=== PATIENT | female | born 1950 | race Caucasian/White ===

== ENCOUNTER 2017-11-04 22:52 | Emergency (ER) | payer MEDICARE, OTHER ==
[~2017-11-04] VITALS: Ht 162.6 cm; Wt 100.7 kg
[~2017-11-04 22:52] MED LIST: GLUCTAB PO; IBUP600T26 PO; ORPH100T PO; POLY10O LEFT EYE
[2017-11-04 23:09] VITALS: BP 113/63; PULSE 94; RESP 20; TEMP 98; O2SAT 96
[2017-11-04 23:50] VITALS: BP 113/63; PULSE 94; RESP 20; TEMP 98; O2SAT 96
[2017-11-04] MEDS ORDERED: SODIUM CHLOR 0.9% 1000 ML INJ 1,000 ML IV ONE (23:57)
--- NOTE | 2017-11-04 23:58 | PD ---
HPI Chief Complaint: GI Complaint Time Seen by Provider: 23:57 Travel History International Travel<30 days: No Contact w/Intl Traveler<30days: No Traveled to known affect area: No History of Present Illness HPI 67-year-old female presents to the emergency department by private transportation for complaint of nausea vomiting diarrhea intermittent abdominal cramping since 7 PM. 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 Patient denies dietary indiscretion well water ingestion or foreign travel. Patient has had no fever or chills. Patient denies hematemesis coffee-ground emesis melena hematochezia. Patient reports otherwise good health other than well-controlled type 2 diabetes. PFSH Past Medical History Narrative Medical Diabetes; no tobacco use no alcohol use; nursing notes reviewed Diabetes: Yes Diminished Hearing: No Immunizations Current: Yes Menopausal: Yes Social History Alcohol Use: No Tobacco Use: No Substance Use: No Allergies-Medications (Allergen,Severity, Reaction): Coded Allergies: No Known Allergies (Verified Adverse Reaction, Unknown, 11/05/17) Reported Meds & Prescriptions Reported Meds & Active Scripts Active Zofran Odt (Ondansetron Odt) 4 Mg Tab 4 Mg SL Q6HR PRN Macrobid (Nitrofurantoin Monoh/Nitrofur Macro) 100 Mg Cap 100 Mg PO BID 10 Days Reported Metformin (Metformin HCl) 500 Mg Tab 500 Mg PO BIDPC Review of Systems Except as stated in HPI: all other systems reviewed are Neg Physical Exam Narrative GENERAL: Well-developed well-nourished female in no acute distress or respiratory distress SKIN: Warm and dry. HEAD: Normocephalic. EYES: No scleral icterus. No injection or drainage. NECK: Supple, trachea midline. No JVD or lymphadenopathy. CARDIOVASCULAR: Regular rate and rhythm without murmurs, gallops, or rubs. RESPIRATORY: Breath sounds equal bilaterally. No accessory muscle use. GASTROINTESTINAL: Abdomen soft, non-tender, no guarding and no rebound, nondistended. MUSCULOSKELETAL: No cyanosis, or edema. BACK: Nontender without obvious deformity. No CVA tenderness. Data Data Last Documented VS Vital Signs Date Time Temp Pulse Resp B/P (MAP) Pulse Ox O2 Delivery O2 Flow Rate FiO2 11/05/17 04:18 79 18 116/67 (83) 96 11/05/17 02:11 Room Air 2/21/18 23:50 98.0 Orders Orders Complete Blood Count With Diff (11/04/17 23:57) Comprehensive Metabolic Panel (11/04/17 23:57) Urinalysis - C+S If Indicated (11/04/17 23:57) Lipase (11/04/17 23:57) Abdomen, Flat & Upright (11/04/17 ) Iv Access Insert/Monitor (11/04/17 23:57) Ecg Monitoring (11/04/17 23:57) Oximetry (11/04/17 23:57) Ondansetron Inj (Zofran Inj) (11/05/17 00:00) Sodium Chlor 0.9% 1000 Ml Inj (Ns 1000 M (11/04/17 23:57) Sodium Chloride 0.9% Flush (Ns Flush) (11/05/17 00:00) Enteric Path (Stool) (11/04/17 23:57) Urine Culture (11/05/17 01:20) Ceftriaxone Inj (Rocephin Inj) (11/05/17 01:45) Ketorolac Inj (Toradol Inj) (11/05/17 01:45) Ondansetron Inj (Zofran Inj) (11/05/17 02:30) Sodium Chlor 0.9% 1000 Ml Inj (Ns 1000 M (11/05/17 02:30) Ct Abd/Pel W Iv Contrast(Rout) (11/05/17 ) Iohexol 350 Inj (Omnipaque 350 Inj) (11/05/17 02:49) Ed Discharge Order (11/05/17 03:21) Labs Laboratory Tests Test 11/05/17 00:15 11/05/17 01:20 White Blood Count 12.4 TH/MM3 Red Blood Count 4.93 MIL/MM3 Hemoglobin 14.7 GM/DL Hematocrit 42.7 % Mean Corpuscular Volume 86.5 FL Mean Corpuscular Hemoglobin 29.7 PG Mean Corpuscular Hemoglobin Concent 34.4 % Red Cell Distribution Width 13.4 % Platelet Count 248 TH/MM3 Mean Platelet Volume 9.1 FL Neutrophils (%) (Auto) 87.6 % Lymphocytes (%) (Auto) 3.2 % Monocytes (%) (Auto) 5.9 % Eosinophils (%) (Auto) 1.2 % Basophils (%) (Auto) 2.1 % Neutrophils # (Auto) 10.9 TH/MM3 Lymphocytes # (Auto) 0.4 TH/MM3 Monocytes # (Auto) 0.7 TH/MM3 Eosinophils # (Auto) 0.1 TH/MM3 Basophils # (Auto) 0.3 TH/MM3 CBC Comment DIFF FINAL Differential Comment Blood Urea Nitrogen 24 MG/DL Creatinine 0.95 MG/DL Random Glucose 172 MG/DL Total Protein 7.8 GM/DL Albumin 3.8 GM/DL Calcium Level 9.3 MG/DL Alkaline Phosphatase 77 U/L Aspartate Amino Transf (AST/SGOT) 12 U/L Alanine Aminotransferase (ALT/SGPT) 20 U/L Total Bilirubin 0.7 MG/DL Sodium Level 139 MEQ/L Potassium Level 4.1 MEQ/L Chloride Level 105 MEQ/L Carbon Dioxide Level 26.8 MEQ/L Anion Gap 7 MEQ/L Estimat Glomerular Filtration Rate 59 ML/MIN Lipase 84 U/L Urine Color YELLOW Urine Turbidity CLEAR Urine pH 5.5 Urine Specific [place] 1.031 Urine Protein TRACE mg/dL Urine Glucose (UA) NEG mg/dL Urine Ketones 80 OR GREATER mg/dL Urine Occult Blood NEG Urine Nitrite NEG Urine Bilirubin NEG Urine Leukocyte Esterase NEG Urine RBC 0-2 /hpf Urine WBC 9-14 /hpf Urine Squamous Epithelial Cells 0-5 /hpf Urine Bacteria FEW /hpf Microscopic Urinalysis Comment CULTURE INDICATED MDM Medical Decision Making Medical Screen Exam Complete: Yes Emergency Medical Condition: Yes Medical Record Reviewed: Yes Interpretation(s) UA: 9-14 wbc, few bacteria; cx indicated Last Impressions Abdomen/Pelvis CT 11/05/17 0000 Signed Impressions: Service Date/Time: October 02:37 - CONCLUSION: 1. Mild diverticulosis with no inflammatory change or distraction. 2. Cholelithiasis with no gallbladder wall thickening or inflammatory change. 3. Small hiatal hernia. 4. Moderate hepatic steatosis. Flash Jang MD Abdomen X-Ray 11/04/17 0000 Signed Impressions: Service Date/Time: October 00:19 - CONCLUSION: 1. Relative paucity of bowel gas with no evidence of obstruction. Flash Jang MD CBC & BMP Diagram 11/05/17 00:15 Total Protein 7.8, Albumin 3.8, Calcium Level 9.3, Alkaline Phosphatase 77, Aspartate Amino Transf (AST/SGOT) 12 L, Alanine Aminotransferase (ALT/SGPT) 20, Total Bilirubin 0.7 Vital Signs Date Time Temp Pulse Resp B/P (MAP) Pulse Ox O2 Delivery O2 Flow Rate FiO2 11/05/17 03:13 73 18 111/57 (75) 96 11/05/17 02:51 18 11/05/17 02:11 80 18 138/68 (91) 97 Room Air 11/05/17 00:37 83 18 121/63 (82) 95 Room Air 11/05/17 00:20 83 18 121/63 (82) 95 Room Air 11/04/17 23:50 98.0 94 20 113/63 (80) 96 11/04/17 23:50 18 11/04/17 23:09 98.0 94 20 113/63 (80) 96 Differential Diagnosis Viral syndrome, foodborne illness, gastroenteritis, dehydration, electrolyte disturbance, colitis, diverticulitis, UTI, sepsis Narrative Course IV access obtained specimens collected and sent for resulting patient given a liter normal saline bolus along with Zofran 4 mg IV Total white cell count mildly elevated with automated differential grossly within normal limits and electrolytes grossly within normal range with urinalysis consistent with white blood cells and few bacteria culture indicated Patient given additional IV fluids patient noted nausea after attempting ice chips has had no vomiting and no diarrhea Patient given first dose of antibiotic in the emergency department CT abdomen and pelvis reveals no acute intra-abdominal or pelvic abnormality and patient is stable for outpatient management Diagnosis Primary Impression: Gastroenteritis Additional Impression: UTI (urinary tract infection) Referrals: Primary Care Physician call for appointment Patient Instructions: General Instructions Departure Forms: Tests/Procedures, Work Release Special Instructions: no work x 2 days Additional Instructions: Follow clear liquid diet for the next 12-24 hours advance as tolerated to bland/ brat diet and regular diabetic diet avoiding fried and fatty foods Do not take any metformin until after Thursday morning at 3:30 AM Take acetaminophen as needed for fever 100.4F or greater Complete course of antibiotic as prescribed Take medication as prescribed as needed for nausea and/or vomiting Return to the emergency department for any concerns or change in condition Follow up with primary care provider call office in a.m. schedule follow-up appointment No work 2 days Med/Other Pt SpecificInfo: Prescription(s) given Scripts Ondansetron Odt (Zofran Odt) 4 Mg Tab 4 MG SL Q6HR Y for Nausea/Vomiting, #12 TAB 0 Refills Prov: Sunitha Muñoz MD 11/05/17 Nitrofurantoin Monohydrate Macrocrystals (Macrobid) 100 Mg Cap 100 MG PO BID for Infection for 10 Days, #20 CAP 0 Refills Prov: Sunitha Muñoz MD 11/05/17 Disposition: 01 DISCHARGE HOME Condition: Stable Sunitha Muñoz MD Nov 04, 2017 23:58
[2017-11-05] MEDS ORDERED: SODIUM CHLORIDE 0.9% FLUSH 10 ML FLUSH IVF PRN
[2017-11-05 00:20] VITALS: BP 121/63; PULSE 83; RESP 18; O2SAT 95
[2017-11-05] MEDS ORDERED: METF500T PO (00:24)
[2017-11-05 00:37] VITALS: BP 121/63; PULSE 83; RESP 18; O2SAT 95
[2017-11-05 00:40] LABS: AUTOMATED NEUTROPHIL # 10.9 TH/MM3 (1.8-7.7); BASOPHIL # 0.3 TH/MM3 (0-0.2); BASOPHIL % 2.1 % (0.0-2.0); EOSINOPHIL # 0.1 TH/MM3 (0-0.4); EOSINOPHIL % 1.2 % (0.0-4.0); HEMATOCRIT 42.7 % (35.0-46.0); HEMOGLOBIN 14.7 GM/DL (11.6-15.3); LYMPH % 3.2 % (9.0-44.0); LYMPHOCYTE # 0.4 TH/MM3 (1.0-4.8); MEAN CELL VOLUME 86.5 FL (80.0-100.0); MEAN CORPUSCULAR HEMOGLOBIN 29.7 PG (27.0-34.0); MEAN CORPUSCULAR HGB CONC 34.4 % (32.0-36.0); MEAN PLATELET VOLUME 9.1 FL (7.0-11.0); MONO % 5.9 % (0.0-8.0); MONOCYTE # 0.7 TH/MM3 (0-0.9); NEUT % 87.6 % (16.0-70.0); PLATELET COUNT 248 TH/MM3 (150-450); RED BLOOD COUNT 4.93 MIL/MM3 (4.00-5.30); RED CELL DISTRIBUTION WIDTH 13.4 % (11.6-17.2); WHITE BLOOD COUNT 12.4 TH/MM3 (4.0-11.0)
--- NOTE | 2017-11-05 00:44 | RADRPT ---
EXAM DATE/TIME: 11/05/2017 00:19 [facility] COMPARISON: No previous studies available for comparison. INDICATIONS : Abdominal pain, vomiting, diarrhea for 4 hours MEDICAL HISTORY : None. SURGICAL HISTORY : None. ENCOUNTER: Initial ACUITY: 1 day PAIN SCORE: 8/10 LOCATION: Bilateral abdomen FINDINGS: Supine and upright views of the abdomen were performed. There is a relative paucity of bowel gas with small amounts of gas and stool noted segmentally in the colon.. No air fluid levels are seen. No a bnormal masses, calcifications, or organomegaly is seen. The visualized lower lungs are clear. No e vidence of free intraperitoneal gas. The osseous structures are unremarkable. There are multiple anthony cified phleboliths in the pelvis. CONCLUSION: 1. Relative paucity of bowel gas with no evidence of obstruction. Flash Jang MD on November 05, 2017 at 0:41 Board Certified Radiologist. This report was verified electronically.
[2017-11-05 00:50] LABS: CHLORIDE 105 MEQ/L (98-107); SODIUM (NA) 139 MEQ/L (136-145)
[2017-11-05 00:53] LABS: CALCIUM 9.3 MG/DL (8.5-10.1)
[2017-11-05 00:54] LABS: ALBUMIN 3.8 GM/DL (3.4-5.0); BICARBONATE 26.8 MEQ/L (21.0-32.0); BLOOD UREA NITROGEN 24 MG/DL (7-18); GLUCOSE,RANDOM 172 MG/DL (74-106)
[2017-11-05 00:57] LABS: ALT (GPT) 20 U/L (10-53); AST (GOT) 12 U/L (15-37); CREATININE 0.95 MG/DL (0.50-1.00); GLOMERULAR FILTRATION RATE 59 ML/MIN (>89)
[2017-11-05 00:58] LABS: TOTAL BILIRUBIN ADULT 0.7 MG/DL (0.2-1.0); TOTAL PROTEIN 7.8 GM/DL (6.4-8.2)
[2017-11-05 01:00] LABS: ALKALINE PHOSPHATASE 77 U/L (45-117)
[2017-11-05 01:26] LABS: BLOOD, URINE NEG (NEG); GLUCOSE,URINE NEG (NEG); KETONE, URINE 80 OR GREATER mg/dL (NEG); NITRITE,URINE NEG (NEG); PH, URINE 5.5 (5.0-8.5); URINE LEUKOCYTE ESTERASE NEG (NEG)
[2017-11-05 01:32] LABS: BILIRUBIN, URINE NEG (NEG)
[2017-11-05 01:33] LABS: BACTERIA, URINE FEW /hpf; RBC, URINE 0-2 /hpf (0-3); SQUAMOUS EPITHELIAL CELL URINE 0-5 /hpf (0-5); URINE COLOR YELLOW (YELLW/STRAW)
[2017-11-05] MEDS ORDERED: cefTRIAXone INJ 1,000 MG in SODIUM CHLORIDE 0.9% INJ 100 ML IV ONE (01:45)
[2017-11-05] MEDS ORDERED: KETOROLAC TROMETHAMINE 30 MG/ML (IVP) VIAL IV PUSH ONE (01:45)
[2017-11-05 02:11] VITALS: BP 138/68; PULSE 80; RESP 18; O2SAT 97
[2017-11-05] MEDS ORDERED: ONDANSETRON HCL 4 MG/2 ML VIAL IV PUSH ONE ×2 (02:30)
[2017-11-05] MEDS ORDERED: SODIUM CHLOR 0.9% 1000 ML INJ 1,000 ML IV ONE (02:30)
[2017-11-05] MEDS ORDERED: IOHEXOL 350 MG/ML 10 ML VIAL (for RAD DIAG) IVCONTRAST ONE (02:49)
--- NOTE | 2017-11-05 03:11 | RADRPT ---
EXAM DATE/TIME: 11/05/2017 02:37 [facility] COMPARISON: No previous studies available for comparison. INDICATIONS : Nausea, vomiting, and diarrhea. IV CONTRAST: 100 cc Omnipaque 350 (iohexol) IV ORAL CONTRAST: No oral contrast ingested. RADIATION DOSE: 22.41 CTDIvol (mGy) MEDICAL HISTORY : Diabetes mellitus type 2. SURGICAL HISTORY : None. ENCOUNTER: Initial ACUITY: 1 day PAIN SCALE: 5/10 LOCATION: abdomen TECHNIQUE: Volumetric scanning of the abdomen and pelvis was performed. Using automated exposure control and ad justment of the mA and/or kV according to patient size, radiation dose was kept as low as reasonably achievable to obtain optimal diagnostic quality images. DICOM format image data is available electro nically for review and comparison. FINDINGS: LOWER LUNGS: The visualized lower lungs are clear. LIVER: Homogeneous density without lesion. There is no dilation of the biliary tree. There is a partially c alcified gallstone within the gallbladder measuring up to 2 cm. There is no gallbladder wall thickeni ng or pericholecystic fluid. There is moderate hepatic steatosis. SPLEEN: Normal size without lesion. PANCREAS: Within normal limits. KIDNEYS: Normal in size and shape. There is no solid mass, stone or hydronephrosis. There is a simple cyst in the right kidney. ADRENAL GLANDS: Within normal limits. VASCULAR: There is no aortic aneurysm. BOWEL/MESENTERY: There is a small hiatal hernia. No oral contrast was given. The stomach, small bowel, and colon demon strate no acute abnormality. Diverticuli are present greatest in the sigmoid colon. There is no free intraperitoneal air or fluid. ABDOMINAL WALL: Within normal limits. RETROPERITONEUM: There is no lymphadenopathy. BLADDER: No wall thickening or mass. REPRODUCTIVE: Within normal limits. INGUINAL: There is no lymphadenopathy or hernia. MUSCULOSKELETAL: Within normal limits for patient age. CONCLUSION: 1. Mild diverticulosis with no inflammatory change or distraction. 2. Cholelithiasis with no gallbladder wall thickening or inflammatory change. 3. Small hiatal hernia. 4. Moderate hepatic steatosis. Flash Jang MD on November 05, 2017 at 3:07 Board Certified Radiologist. This report was verified electronically.
[2017-11-05 03:13] VITALS: BP 111/57; PULSE 73; RESP 18; O2SAT 96
[2017-11-05] MEDS ORDERED: ZOFR4TAB3 SL (03:24)
[2017-11-05] MEDS ORDERED: MACR100C2 PO (03:24)
[2017-11-05 04:18] VITALS: BP 116/67
== END 2017-11-05 04:27 | disposition home or self-care (01) ==
LOC: PHED 22:52
DX: K52.9 Noninfective gastroenteritis and colitis, unspecified (principal); N39.0 Urinary tract infection, site not specified; E11.9 Type 2 diabetes mellitus without complications
CPT/HCPCS: 74019; 74177; 80053; 81001; 83690; 85025; 87086; 96361; 96365; 96375; 96376; 99285; J0696; J1885; J2405; J7030; Q9967